=== PATIENT | female | born 1965 | race Caucasian/White ===

== ENCOUNTER 2025-02-23 17:32 | Observation (INO) | payer OTHER, SELFPAY ==
[2025-02-23 17:37] VITALS: BP 92/47; PULSE 75; RESP 18; TEMP 36.6; O2SAT 100; BMI 21.8
[2025-02-23 18:00] VITALS: BP 109/55; PULSE 79; O2SAT 100
[2025-02-23] MEDS: LACTATED RINGERS 1000ML 1,000 ML 999 ML IV (18:18)
[2025-02-23] MEDS: ONDANSETRON 4MG/2ML VIAL 4 MG IV (18:19)
[2025-02-23 18:20] LABS: Basophils % 0.3 % (0.1-2.0); Eosinophils # 0.1 K/mm3 (0.0-0.4); Eosinophils % 0.5 % (0.1-12.0); Hematocrit 36.1 % (37.0-47.0); Hemoglobin 11.7 g/dL (12.2-16.2); Lymphocytes # 4.2 K/mm3 (0.7-4.5); Lymphocytes % 35.4 % (10-50); Mean Corpuscular HGB Conc 32.4 g/dL (31.8-35.4); Mean Corpuscular Hemoglobin 31.9 pg (27.0-31.2); Mean Corpuscular Volume 98.4 fl (81-99); Mean Platelet Volume 11.2 fl (7.4-10.4); Monocytes # 0.9 K/mm3 (0.1-1.0); Monocytes % 7.6 % (1.7-9.3); Neutrophils # 6.7 K/mm3 (1.8-7.8); Neutrophils % 55.9 % (37.0-80.0); Nucleated Red Blood Cells # 0 10^3/uL; Nucleated Red Blood Cells % 0 %; Platelet Count 311 K/mm3 (142-424); Red Blood Count 3.67 M/mm3 (4.20-5.40); Red Cell Distribution Width-SD 47.1 fL; White Blood Count 11.9 K/mm3 (4.8-10.8)
--- NOTE | 2025-02-23 18:20 | ECG_ITS ---
APPROVED REPORT Exam: Resting ECG HR:64 bpm ECG Measurements Heart Rate [address] 145 P -44 QRSd 175 QRS 118 QT 525 T -68 QTc 534 Conclusion ELECTRONIC ATRIAL PACEMAKER ELECTRONIC VENTRICULAR PACEMAKER No STEMI Electronically signed by : ENRIQUE WAGONER, 02/24/2025 23:33:24
[2025-02-23 18:24] LABS: Magnesium 2.1 mg/dl (1.6-2.3); Phosphorous 3.5 mg/dl (2.5-4.5)
[2025-02-23 18:27] LABS: Alanine Aminotransferase 24 U/L (12-78); Blood Urea Nitrogen 32 mg/dl (7-17); Creatinine Clearance Estimated 33 mL/min (50-200); Estimated Glomerular Filt Rate 31 ml/min (>60); GFR (African American) 37 ML/MIN (>60)
[2025-02-23 18:28] LABS: Activated Partial Thrombo Time 24.9 seconds (22.8-30.6); Alkaline Phosphatase 142 U/L (38-126); Aspartate Amino Transferase 47 U/L (14-36); Bilirubin,Total 0.7 mg/dl (0.2-1.3); Calcium 9.1 mg/dl (8.4-10.2); Carbon Dioxide 17 mmol/L (22.0-30.0); INR 1.05 (0.9-1.1); Lipase 87 U/L (23-300); Prothrombin Time 11.7 seconds (10.1-12.5)
[2025-02-23 18:30] VITALS: BP 97/53; PULSE 60; O2SAT 100
[2025-02-23 18:30] LABS: Sodium 140 mmol/L (136-145)
[2025-02-23 18:31] LABS: Albumin Level 3.9 g/dl (3.5-5.0); Albumin/Globulin Ratio 1.3 (1.1-1.8); Anion Gap 17.6 mEq/L (5-15); Chloride 110 mmol/L (98-107); Glucose 107 mg/dl (74-100); Potassium 4.6 mmoL/L (3.5-5.1); Total Protein,Serum 6.9 g/dl (6.3-8.2)
[2025-02-23 18:41] LABS: NT Pro Brain Natriuretic Pep. 25800 pg/mL (0-125); Troponin I 0.43 ng/ml (0.00-0.034)
--- NOTE | 2025-02-23 18:52 | PC.NURSE ---
Obtaining urine sample from pt. She was taken to the bathroom
[2025-02-23 18:58] LABS: Thyroid Stimulating Hormone 4.76 uIU/mL (0.465-4.68)
--- NOTE | 2025-02-23 19:00 | PC.NURSE ---
Urine was collected on pt. it was marked by catheter but it was not. It was a clean catch
[2025-02-23 19:03] LABS: Microscopic, Urine URINE MICROSCOPIC (MICROSCOPIC)
[2025-02-23 19:05] LABS: Appearance,Urine CLEAR (Clear); Blood, Urine Negative (Negative); Color,Urine YELLOW (Yellow); Glucose,Urine (UA) 2+ (Negative); Ketones,Urine Negative (Negative); Leukocyte Esterase,Urine 1+ (Negative); Nitrate,Urine Negative (Negative); PH,Urine 5.5 (5.0-8.5); Protein,Urine 1+ (Negative); Specific Gravity, Urine >= 1.030 (1.005-1.030); Urobilinogen,Urine 0.2 EU/dl (0.2)
--- NOTE | 2025-02-23 19:09 | XR_ITS ---
PROCEDURE INFORMATION: Exam: XR Chest Exam date and time: 02/23/2025 7:37 PM Age: 59 years old Clinical indication: Other: Weakness; Prior surgery; Surgery date: 6+ months; Surgery type: Pacemaker; Additional info: Elevated bnp, general weakness TECHNIQUE: Imaging protocol: Radiologic exam of the chest. Views: 1 view. COMPARISON: No relevant prior studies available. FINDINGS: Tubes, catheters and devices: Unremarkable pacemaker placement. Lungs: Unremarkable. No consolidation. Pleural spaces: Unremarkable. No pleural effusion. No pneumothorax. Heart/Mediastinum: Mild cardiomegaly. Bones/joints: Unremarkable. IMPRESSION: No acute findings.
[2025-02-23 19:13] LABS: Bilirubin,Urine 1+ (Negative)
[2025-02-23 19:21] LABS: Bacteria,Urine 2+ /lpf; Squamous Epithelial Cell,Urine Occasional #/hpf (0-5); WBC,Urine 50-100 #/hpf (0-3)
[2025-02-23 19:22] LABS: Hyaline Casts,Urine Occasional #/lpf (0); Yeast,Urine 2+ /lpf
[2025-02-23 20:16] VITALS: BP 100/57; PULSE 74; RESP 16; TEMP 37; O2SAT 100; BMI 22.5
--- NOTE | 2025-02-23 20:23 | PC.NURSE ---
Report called to Shauna RAMOS Pt transported to floor via wheelchair
[2025-02-23 20:27] LABS: HIV Combo NEGATIVE (Negative)
--- NOTE | 2025-02-23 20:33 | PC.NURSE ---
Patient arrived to floor via wheelchair from ED at 20:29.
[2025-02-23 20:35] LABS: Hepatitis C Ab Qual. W/ RFX NEGATIVE (Negative)
[2025-02-23 20:37] VITALS: PULSE 70
[2025-02-23 20:38] VITALS: BP 96/62; PULSE 60; RESP 14; TEMP 37.1; O2SAT 100
--- NOTE | 2025-02-23 20:39 | ED_ITS ---
Discharge Plan Disposition Patient Disposition: Admitted Clinical Impressions Clinical Impression: CHF (congestive heart failure), UTI (urinary tract infection), Nausea, vomiting and diarrhea Discharge ED Provider: Luann Robison General Adult HPI General Chief complaint: Nausea/Vomiting/Diarrhea Stated complaint: vomiting,kathy,weakness,uti Time Seen by Provider: 02/23/25 17:46 Mode of Arrival: Ambulatory Source of Information: Patient and Relative Description of Symptoms (Recalled from ER Triage Doc. by RN): Pt presents for evaluation of vomiting, diarrhea, feeling fatigued, generalized weakness. Family expresses concerns that she appears pale, and her PCP is requesting labs to be done. Pt recently had a UTI, and was treated with antibiotics is complaining of vaginal itching History of Present Illness HPI narrative: This patient is a 59-year-old female with a history of CHF, hypertension, hyperlipoidemia, diabetes, PAD status post revascularization to right lower extremity, prior CVA presenting to the emergency department for evaluation of concern for multiple complaints. Patient has had 3 weeks of nausea, vomiting, diarrhea and is also had UTI symptoms. She completed oral antibiotics 1 week ago, but the UTI symptoms have persisted and she is felt no better. She also states that she has been feeling very generally weak and is now been having chest pains and shortness of breath. Symptoms are intermittent, nothing seems to make the better or worse. Emesis is nonbloody and nonbilious, diarrhea is nonbloody. Patient also now complains of vaginal itching, concerned she is having a yeast infection. Family stress concerned because they think that she is not taking her medications properly, as they believe that she is taking both sotalol and metoprolol and they are concerned that this could be contributing to her weakness, chest pain, shortness of breath. They state that they do not think she supposed to be on both. They note that she recently moved here from [place], so they are not sure about her prior records. She did have a hospitalization for 5 months with discharge in December after CVA that happened after revascularization of her right lower extremity. Related Data Home Medications ?Medication ?Instructions ?Recorded ?Confirmed atorvastatin 40 mg tablet 40 mg PO HS 02/23/25 02/23/25 clopidogrel 75 mg tablet 75 mg PO DAILY 02/23/25 02/23/25 empagliflozin 10 mg tablet 10 mg PO DAILY 02/23/25 02/23/25 (Jardiance) furosemide 40 mg tablet 40 mg PO DAILY 02/23/25 02/23/25 metoprolol succinate 25 mg 12.5 mg PO DAILY 02/23/25 02/23/25 tablet,extended release 24 hr nitroglycerin 0.4 mg sublingual 0.4 mg sublingual DIRECTED PRN 02/23/25 02/23/25 tablet Chest Pain paroxetine HCl 20 mg tablet 20 mg PO HS PRN Sleep 02/23/25 02/23/25 potassium chloride 20 mEq 20 meq PO DAILY 02/23/25 02/23/25 tablet,extended release sacubitril 24 mg-valsartan 26 mg 1 tab PO BID 02/23/25 02/23/25 tablet (Entresto) sotalol 80 mg tablet 80 mg PO DAILY 02/23/25 02/23/25 spironolactone 25 mg tablet 25 mg PO DAILY 02/23/25 02/23/25 Allergies Allergy/AdvReac Type Severity Reaction Status Date / Time From SUDAFED 12 HOUR Allergy Unknown Uncoded 10/27/17 15:11 From VICODIN Allergy Unknown Uncoded 10/27/17 15:11 MICROBID Allergy Unknown Uncoded 10/27/17 15:11 [facility] Disclaimer: The information contained in this section may have been updated after the patient was seen, as this information can be updated by other users. Social History Smoking Status: Never smoker alcohol intake: never current occupational status: retired Travel in the last 8 weeks: None ROS Obtained: Yes All systems reviewed & no additional complaints except as documented Physical Exam General General appearance: alert and in no apparent distress Head Head exam: atraumatic and normocephalic Eye Eye exam: Present normal appearance, PERRL and EOMI ENT ENT exam: Present normal exam, normal oropharynx, mucous membranes moist and normal external ear exam Neck Neck exam: Present normal inspection, full ROM and trachea midline; Absent tenderness Chest Chest inspection: Present normal inspection and symmetric chest wall rise; Absent tenderness Respiratory Respiratory exam: Present normal lung sounds bilaterally; Absent respiratory distress, wheezes, stridor or accessory muscle use Cardiovascular Cardiovascular exam: Present regular rate and normal rhythm Abdominal Exam Abdominal exam: Present soft; Absent distention, tenderness or guarding Extremities Exam Extremities exam: Present normal inspection, full ROM and normal capillary refill; Absent tenderness or edema Back Exam Back exam: Present normal inspection and full ROM; Absent tenderness Neurological Exam Neurological exam: Present alert, oriented X3, CN II-XII intact and other (Generally weak without focal deficit); Absent motor sensory deficit Psychiatric Psychiatric exam: Present normal affect and normal mood Skin Skin exam: Present warm, dry and pallor Medical Decision Making Medical Records Medical records reviewed: Yes I reviewed the patient's medical records. Screening: Per USPSTF and CDC recommendations, given the prevalence of disease in our region, it is our hospital?s policy to screen for HIV and viral Hepatitis for all patients aged 18 and over and those with ongoing risk factors. Ke[place] Inquiry Pt receiving controlled substance: No Vital Signs: 02/23/25 17:37 02/23/25 18:00 02/23/25 18:30 Temperature 98 F Temperature Source Oral Pulse Rate 79 60 Pulse Rate [Right] 75 Respiratory Rate 18 Blood Pressure 109/55 L 97/53 L Blood Pressure [Right Arm] 92/47 L Blood Pressure Mean [Right Arm] 62 Blood Pressure Source Blood Pressure Source [Right Arm] Automatic Cuff Blood Pressure Position Blood Pressure Position [Right Arm] Sitting 02 Sat by Pulse Oximetry 100 100 100 Oxygen Delivery Method Room Air Room Air Room Air 02/23/25 20:38 Temperature 98.8 F Temperature Source Oral Pulse Rate 60 Pulse Rate [Right] Respiratory Rate 14 Blood Pressure 96/62 L Blood Pressure [Right Arm] Blood Pressure Mean [Right Arm] Blood Pressure Source Automatic Cuff Blood Pressure Source [Right Arm] Blood Pressure Position Sitting Blood Pressure Position [Right Arm] 02 Sat by Pulse Oximetry Oxygen Delivery Method Room Air Lab Data Lab results reviewed: Yes I reviewed the patient's lab results. Lab Results 02/23/25 17:58: WBC 11.9 H, RBC 3.67 L, Hgb 11.7 L, Hct 36.1 L, MCV 98.4, MCH 31.9 H, MCHC 32.4, RDW 13.0, Plt Count 311, MPV 11.2 H, Neut % (Auto) 55.9, Lymph % (Auto) 35.4, [place] % (Auto) 7.6, Eos % (Auto) 0.5, Baso % (Auto) 0.3, Neut # (Auto) 6.7, Lymph # (Auto) 4.2, [place] # (Auto) 0.9, Eos # (Auto) 0.1, Baso # (Auto) 0.0, PT 11.7, INR 1.05, APTT 24.9, Sodium 140, Potassium 4.6, Chloride 110 H, Carbon Dioxide 17 L, Anion Gap 17.6 H, BUN 32 H, Creatinine 1.70 H, Estimated Creat Clear 33, Estimated GFR 31 L, Est GFR ( Amer) 37 L, G lucose 107 H, Calcium 9.1, Phosphorus 3.5, Magnesium 2.1, Total Bilirubin 0.7, A ST 47 H, ALT 24, Alkaline Phosphatase 142 H, Troponin I 0.43 H, NT-Pro-B Natriuret Pep 00690 H, Total Protein 6.9, Albumin 3.9, Globulin 3.0, Albumin/Globulin Ratio 1.3, Lipase 87, TSH 4.76 H, Thyroxine (T4) 10.0, HCV Ab URBANO w/Rflx PCR Qn Negative, HIV Ag/Ab Combo Qual Negative 02/23/25 18:57: Urine Color Yellow, Urine Appearance Clear, Urine pH 5.5, Ur Specific Center >= 1.030, Urine Protein 1+ A, Urine Glucose (UA) 2+, Urine Ketones Negative, Urine Blood Negative, Urine Nitrate Negative, Urine Bilirubin 1+ A, Urine Urobilinogen 0.2, Ur Leukocyte Esterase 1+ A, Urine RBC None, Urine WBC 50-100, Ur Squamous Epith Cells Occasional, Urine Bacteria 2+, Hyaline Casts Occasional, Urine Yeast 2+ 02/23/25 17:58 02/23/25 17:58 Orders (Tests/Meds): ED MEDICATIONS Generic Name Dose Route Start Last Admin Trade Name Freq PRN Reason Stop Dose Admin Acetaminophen 650 mg 02/23/25 20:02 Acetaminophen 325mg Tab PO 03/25/25 20:01 Q4HP PRN Fever or Mild Pain (1-3) Albuterol/Ipratropium 3 ml 02/23/25 20:11 Ipratropium/Albuterol 3 Ml Neb IH 03/25/25 20:10 Q4HP PRN Shortness Of Breath Enoxaparin Sodium 40 mg 02/24/25 09:00 Enoxaparin 40mg/0.4ml Syringe SUBCUT 03/26/25 08:59 DAILY CHRIS Ceftriaxone Sodium 1 gm/ 50 mls @ 100 mls/hr 02/23/25 20:15 Sodium Chloride IV 03/05/25 20:14 Q24H CHRIS Sodium Chloride 1,000 mls @ 50 mls/hr 02/23/25 20:09 Sod Chlor 0.9% 1000ml Bag IV 02/24/25 16:08 .Q20H ONE Insulin Human Lispro 0 unit 02/23/25 21:00 Humalog 100 Units/Ml 10ml Vial (Ssi) SUBCUT 03/25/25 20:59 ACHS CHRIS Protocol Nicotine 21 mg 02/23/25 20:02 Nicotine 21mg/24hr Patch TD 03/25/25 20:01 DAILYP PRN Nicotine Cravings Ondansetron HCl 4 mg 02/23/25 20:02 Ondansetron 4mg/2ml Vial IV 03/25/25 20:01 Q6HP PRN Nausea Pantoprazole Sodium 40 mg 02/23/25 21:00 Pantoprazole 40mg Tablet PO 03/25/25 20:59 HS CHRIS Sodium Chloride 10 ml 02/23/25 20:08 Sodium Chloride 0.9% 10ml Flush Syringe IV 03/25/25 20:07 NEEDED PRN Maintain IV Site Discontinued Medications Generic Name Dose Route Start Last Admin Trade Name Freq PRN Reason Stop Dose Admin Lactated Ringer's 1,000 mls @ 999 mls/hr 02/23/25 18:07 02/23/25 18:18 Lactated Ringer's 1000 Ml Bag IV 02/23/25 19:07 999 mls/hr .Q1H1M ONE Administration Ondansetron HCl 4 mg 02/23/25 18:07 02/23/25 18:19 Ondansetron 4mg/2ml Vial IV 02/23/25 18:08 4 mg ONCE ONE Administration ORDERS Category Date Time Status CXR --portable [XR chest portable] Stat Exams 02/23/25 19:09 Completed BNP [NT Pro Brain Natriuretic Pep.] Stat Lab 02/23/25 17:58 Completed Complete Blood Count Auto Diff Stat Lab 02/23/25 17:58 Completed Comprehensive Metabolic Panel Stat Lab 02/23/25 17:58 Completed Diarrhea 23 Panel, PCR Stat Lab 02/23/25 18:06 Ordered HIV Combo Stat Lab 02/23/25 17:58 Completed Hepatitis C Ab Qual. W/ RFX Stat Lab 02/23/25 17:58 Completed Lipase Stat Lab 02/23/25 17:58 Completed MAG [Magnesium] Stat Lab 02/23/25 17:58 Completed PHOS [Phosphorous] Stat Lab 02/23/25 17:58 Completed PT INR [Prothrombin Time INR] Stat Lab 02/23/25 17:58 Completed PTT [Activated Partial Thrombo Time] Stat Lab 02/23/25 17:58 Completed T4 (Thyroxine) Stat Lab 02/23/25 17:58 Completed TSH [Thyroid Stimulating Hormone] Stat Lab 02/23/25 17:58 Completed Trop I [Troponin I] Stat Lab 02/23/25 17:58 Completed Troponin I Q3H Lab 02/23/25 21:15 Ordered Troponin I Q3H Lab 02/24/25 00:15 Ordered UA [Urinalysis and Microscopic] Stat Lab 02/23/25 18:57 Completed Blood Culture Stat Micro 02/23/25 19:40 Ordered Urine Culture Stat Micro 02/23/25 18:57 Received ECG Data Tracing #1: I reviewed this ECG and interpreted as documented below: Paced rhythm ventricular rate of 64 bpm. No acute STEMI ECG initial impression date: 02/23/25 ECG initial impression time: 18:22 Medical Decision Narrative: In summary, this patient is a 59-year-old presenting to the Emergency Department for evaluation of general weakness, chest pain, shortness of breath, nausea, vomiting, diarrhea, urinary tract infection symptoms, vaginal itching. Differential diagnoses considered include but are not limited to gastroenteritis, colitis, dehydration, CHF, ACS, urinary tract infection, sepsis, vaginitis. Ruling out the most morbid conditions drove assessment. It should be noted patient's history includes extensive cardiovascular history which likely is not at goal therapy. This complicates all aspects of care by increasing patient's risk for morbidity. On exam, the patient is sitting upright in no acute distress. She is alert and at her neurologic baseline. She is generally weak without any focal new deficit. She has soft pressures and looks clinically dry. Workup included broad lab evaluation to evaluate for infectious, metabolic, cardiac derangements. Chest x-ray also obtained. I independently interpreted chest x-ray prior to the radiologist read and noted cardiomegaly without overt pulmonary edema. Please see their read for final interpretation. Labs were obtained that demonstrated mild leukocytosis, urine is concerning for infection. She has mild anemia, no indication for transfusion. Labs demonstrate MARIA ESTHER, elevated BUN and anion gap, elevated troponin, elevated BNP. EKG obtained demonstrates no STEMI, but she is pacer difficult to determine any sort of underlying changes.. On reassessment, patient is resting calmly in no acute distress with reassuring vital signs and cardiac telemetry. Given her signs of cardiovascular history, elevated troponins, multitude of complaints, and UTI, I feel she would benefit from admission for further monitoring. I had an indirect discussion with the hospitalist who admitted the patient in stable condition. Critical Care Critical Care Time Critical Care Time: No
[2025-02-23 21:27] LABS: POC Glucose,Bedside 95 (70-110)
[2025-02-23] MEDS: 0.9 % SODIUM CHLORIDE 1000ML 1,000 ML 50 ML IV (21:40)
[2025-02-23] MEDS: CEFTRIAXONE 1 GM 1 GM in 0.9 % SODIUM CHLORIDE 50 ML IV (21:40)
[2025-02-23] MEDS: PANTOPRAZOLE 40MG TABLET 40 MG PO (21:41)
[2025-02-23] MEDS: FUROSEMIDE 40MG/4ML VIAL 40 MG IV (21:41)
[2025-02-23 21:59] LABS: Troponin I 0.39 ng/ml (0.00-0.034)
--- NOTE | 2025-02-23 22:23 | P.HP_ITS ---
<Statement entered by Tim Macdonald MD - 02/24/25 18:21> Rounded on patient after nurse practitioner. Personally examined and interviewed patient. Agree with exam findings and care plan as documented. History of Present Illness *Admission Date: 02/24/25 *Reason for visit:: Generalized weakness *History of present illness: A 59-year-old female with a history of congestive heart failure, hypertension, hyperlipidemia, diabetes, peripheral artery disease (status post right lower extremity revascularization), and prior cerebrovascular accident presents to the emergency department with 3 weeks of nausea, vomiting, diarrhea, urinary tract infection symptoms, vaginal itching, general weakness, intermittent chest pain, and shortness of breath. She completed oral antibiotics 1 week ago for a urinary tract infection, but symptoms persisted. She reports nonbloody, nonbilious emesis, nonbloody diarrhea, and suspected yeast infection with vaginal discharge and itching. Family is concerned about medication mismanagement, noting she takes both sotalol 80 mg daily and metoprolol 12.5 mg daily, potentially contributing to weakness, chest pain, and shortness of breath. Home medications include atorvastatin 40 mg nightly, clopidogrel 75 mg daily, empagliflozin 10 mg daily, furosemide 40 mg as needed, nitroglycerin 0.4 mg as needed, paroxetine 20 mg nightly as needed, potassium chloride 20 mEq daily, sacubitril/valsartan one tablet twice daily (restarted 1 week ago), and spironolactone 25 mg daily. She recently moved from [place], lacks a primary care physician, but has a felt cementer appointment planned. She was hospitalized for 5 months until December 2024 post-revascularization and stroke, with moderate right lower extremity weakness requiring intermittent cane use. The history was obtained through interactive discussion with the patient and family, deemed reliable, with no prior records available due to recent relocation. They do state that they were instructed to take her furosemide as needed when they see signs of leg swelling for which they have not seen. On examination, the patient is sitting upright, in no acute distress, alert, at her neurologic baseline, with general weakness but no new focal deficits. She has soft blood pressures, appears clinically dry, and ambulates with a cane. Vital signs are reassuring on cardiac telemetry. Diagnostic workup includes labs, urinalysis, EKG, and chest X-ray. Labs show WBC 11.9, hemoglobin 11.7, platelets 311, sodium 140, potassium 4.6, creatinine 1.70, GFR 31, glucose 107, troponin 0.43 with repeat 0.39, NT-proBNP 33715, BUN 32, anion gap 17.6, AST 47, alkaline phosphatase 142, TSH 4.76, and T4 10.0. Urinalysis shows 50?100 WBCs, 2+ bacteria, 2+ yeast, 1+ protein, 2+ glucose, and 1+ leukocyte esterase. EKG shows paced rhythm at 64 bpm, no STEMI. Chest X-ray shows cardiomegaly without pulmonary edema or peripheral fluid overload signs; radiology read confirms no acute findings. Treatments implemented are not specified but implied to include IV fluids, ceftriaxone, and fluconazole based on prior management. On reassessment, the patient is calm, with stable vitals on telemetry. Hospital medicine admitted her in stable condition for monitoring of cardiovascular issues, troponin elevation, and urinary tract infection. [facility] Disclaimer: The information contained in this section may have been updated after the patient was seen, as this information can be updated by other users. Medical History (Updated 02/24/25 @ 12:26 by RANDI Donohue) CAD (coronary artery disease) CVA (cerebral vascular accident) Social History Smoking Status: Never smoker alcohol intake: never current occupational status: retired Travel in the last 8 weeks: None Other Medical History Have you received the Flu Vaccine for this season: No Have you received the Pneumonia Vaccine: No Review of Systems Review of Systems Review of systems (narrative): 13 point review of systems negative except as listed in HPI Meds Home Medications and Allergies Home Medications ?Medication ?Instructions ?Recorded ?Confirmed ?Type atorvastatin 40 mg tablet 40 mg PO HS 02/23/25 02/23/25 History clopidogrel 75 mg tablet 75 mg PO DAILY 02/23/25 02/23/25 History empagliflozin 10 mg tablet 10 mg PO DAILY 02/23/25 02/23/25 History (Jardiance) furosemide 40 mg tablet 40 mg PO DAILY 02/23/25 02/23/25 History metoprolol succinate 25 mg 12.5 mg PO DAILY 02/23/25 02/23/25 History tablet,extended release 24 hr nitroglycerin 0.4 mg sublingual 0.4 mg sublingual DIRECTED PRN 02/23/25 02/23/25 History tablet Chest Pain paroxetine HCl 20 mg tablet 20 mg PO HS PRN Sleep 02/23/25 02/23/25 History potassium chloride 20 mEq 20 meq PO DAILY 02/23/25 02/23/25 History tablet,extended release sacubitril 24 mg-valsartan 26 mg 1 tab PO BID 02/23/25 02/23/25 History tablet (Entresto) sotalol 80 mg tablet 80 mg PO DAILY 02/23/25 02/23/25 History spironolactone 25 mg tablet 25 mg PO DAILY 02/23/25 02/23/25 History New Prescriptions to Start Prescriptions: Allergies Allergy/AdvReac Type Severity Reaction Status Date / Time From SUDAFED 12 HOUR Allergy Unknown Uncoded 10/27/17 15:11 From VICODIN Allergy Unknown Uncoded 10/27/17 15:11 MICROBID Allergy Unknown Uncoded 10/27/17 15:11 Exam Data for Last 24 hours Vital signs and Labs for Last 24 Hours: Temp Pulse Resp BP Pulse Ox O2 Del Method 98.8 F 60 14 96/62 L 100 Room Air 02/23/25 20:38 02/23/25 20:38 02/23/25 20:38 02/23/25 20:38 02/23/25 20:16 02/23/25 21:00 Laboratory Results - last 24 hr 02/23/25 17:58: WBC 11.9 H, RBC 3.67 L, Hgb 11.7 L, Hct 36.1 L, MCV 98.4, MCH 31.9 H, MCHC 32.4, RDW 13.0, Plt Count 311, MPV 11.2 H, Neut % (Auto) 55.9, Lymph % (Auto) 35.4, [place] % (Auto) 7.6, Eos % (Auto) 0.5, Baso % (Auto) 0.3, Neut # (Auto) 6.7, Lymph # (Auto) 4.2, [place] # (Auto) 0.9, Eos # (Auto) 0.1, Baso # (Auto) 0.0, PT 11.7, INR 1.05, APTT 24.9, Sodium 140, Potassium 4.6, Chloride 110 H, Carbon Dioxide 17 L, Anion Gap 17.6 H, BUN 32 H, Creatinine 1.70 H, Estimated Creat Clear 33, Estimated GFR 31 L, Est GFR ( Amer) 37 L, Glucose 107 H, Calcium 9.1, Phosphorus 3.5, Magnesium 2.1, Total Bilirubin 0.7, AST 47 H, ALT 24, Alkaline Phosphatase 142 H, Troponin I 0.43 H, NT-Pro-B Natriuret Pep 86520 H, Total Protein 6.9, Albumin 3.9, Globulin 3.0, Albumin/Globulin Ratio 1.3, Lipase 87, TSH 4.76 H, Thyroxine (T4) 10.0, HCV Ab URBANO w/Rflx PCR Qn Negative, HIV Ag/Ab Combo Qual Negative 02/23/25 18:57: Urine Color Yellow, Urine Appearance Clear, Urine pH 5.5, Ur Specific [place] >= 1.030, Urine Protein 1+ A, Urine Glucose (UA) 2+, Urine Ketones Negative, Urine Blood Negative, Urine Nitrate Negative, Urine Bilirubin 1+ A, Urine Urobilinogen 0.2, Ur Leukocyte Esterase 1+ A, Urine RBC None, Urine WBC 50-100, Ur Squamous Epith Cells Occasional, Urine Bacteria 2+, Hyaline Casts Occasional, Urine Yeast 2+ 02/23/25 21:18: POC Glucose 95 02/23/25 21:19: Troponin I 0.39 H I & O for Last 24 hours: Intake & Output 02/20/25 02/21/25 02/22/25 02/23/25 23:59 23:59 23:59 23:59 Weight 59.534 kg Constitutional Constitutional: no acute distress *Routine HEENT Exam Head: Present normocephalic Eye: Present EOMI and PERRL ENT: Present mucous membranes moist *Routine Neck Exam Neck: Present supple; Absent lymphadenopathy *Routine Respiratory Exam Respiratory: Present CTA bilaterally *Routine Cardiovascular Exam Cardiovascular: Present RRR *Routine Abdominal Exam Abdominal: Present soft and normoactive bowel sounds; Absent tenderness *Routine Rectal Exam Rectal:: deferred *Routine Genitalia Exam Genitalia:: deferred *Routine Extremities Exam Extremities: Absent cyanosis, clubbing or edema *Routine Skin Exam Skin: Present warm; Absent rash *Routine Neurological Exam Neurological: Present alert and oriented X3 Assessment and Plan *Assessment and plan (1) Sepsis: Status: Acute Category: Medical Code(s): A41.9 - Sepsis, unspecified organism (2) UTI (urinary tract infection): Status: Acute Category: Medical Code(s): N39.0 - Urinary tract infection, site not specified (3) Nausea, vomiting and diarrhea: Status: Acute Category: Medical Code(s): R11.2 - Nausea with vomiting, unspecified; R19.7 - Diarrhea, unspecified (4) CHF (congestive heart failure): Status: Acute Category: Medical Code(s): I50.9 - Heart failure, unspecified (5) Generalized weakness: Status: Acute Category: Medical Code(s): R53.1 - Weakness (6) NSTEMI (non-ST elevated myocardial infarction): Status: Acute Category: Medical Code(s): I21.4 - Non-ST elevation (NSTEMI) myocardial infarction (7) Peripheral artery disease: Status: Acute Category: Medical Code(s): I73.9 - Peripheral vascular disease, unspecified (8) HFrEF (heart failure with reduced ejection fraction): Status: Acute Category: Medical Code(s): I50.20 - Unspecified systolic (congestive) heart failure Plan 59-year-old female with history of stroke with residual deficits. Presented with worsening weakness over the past 3 weeks including nausea, vomiting, diarrhea and concern for UTI with vaginal itching. Family recently help take over her care and are worried about her regimen unclear what she is supposed to be taking. Has not established with a primary care since arriving to [place] in December. Found to have UTI elevated on and concern for CHF and sepsis. Case discussed with ER physician, request admission for treatment of her heart failure, MARIA ESTHER versus CKD, sepsis and UTI. Medicine agreed to admit for further care. Necessitating inpatient treatment. Cardiology to evaluate in the morning. Problems addressed as follows * Urinary Tract Infection: Persistent urinary tract infection symptoms despite recent antibiotics, with urinalysis showing 50?100 WBCs, 2+ bacteria, and 1+ leukocyte esterase, in a patient with suspected diabetes. * Initiate IV ceftriaxone 1 g daily; obtain urine culture to guide antibiotic therapy. * Monitor for dysuria, frequency, or worsening pain every 4 hours; recheck urinalysis in 48 hours. * Encourage hydration to support infection clearance. 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 * Start furosemide 40 mg IV daily for fluid overload, hold if systolic blood pressure drops below 90 or hypovolemia signs appear. * Continue sacubitril/valsartan one tablet twice daily and spironolactone 25 mg daily as home regimen, pending cardiology review. * Hold sotalol and metoprolol until cardiology clarifies to avoid bradycardia or hypotension; monitor heart rate every 2 hours. * Monitor daily weights, input/output, and edema every 8 hours; restrict sodium to 2 grams daily. * Order echocardiogram to assess cardiac function; compare to prior records. * Consult cardiology to optimize congestive heart failure management and review beta-delaney duplication. * Recheck NT-proBNP in 24 hours to assess diuresis response. * Non-ST Elevation Myocardial Infarction (Suspected): Intermittent chest pain, troponin 0.43, paced rhythm on EKG (64 bpm), no STEMI, in a patient with coronary artery disease and congestive heart failure. * Continue clopidogrel 75 mg daily and nitroglycerin 0.4 mg sublingual as needed (home regimen); monitor for bleeding (hemoglobin 11.7). * Monitor troponin every 8 hours for 24 hours; consult cardiology if troponin rises above 0.5. * Monitor for chest pain or ischemic symptoms every 4 hours; repeat EKG if symptoms worsen. * Continue cardiology consultation for NSTEMI evaluation. * Vaginal Yeast Infection (Suspected): Vaginal itching and discharge, urinalysis with 2+ yeast, in a patient with diabetes and recent antibiotics. * Administer fluconazole 200 mg oral x 2 days for suspected yeast infection. * Monitor for worsening itching or discharge every 8 hours; consult gynecology if symptoms persist after 48 hours. * Coordinate with primary care for outpatient gynecologic follow-up. * Acute Kidney Injury: Creatinine 1.70, GFR 31, BUN 32, likely prerenal from dehydration (nausea, vomiting, diarrhea), in a patient with chronic kidney disease and diabetes. * Continue IV fluids at 50 mL/hour to support renal perfusion; monitor urine output every 4 hours, targeting above 0.5 mL/kg/hour. * Recheck creatinine and BUN in 24 hours; monitor closely if creatinine rises above 2.0 or GFR falls below 25. * Continue potassium chloride 20 mEq daily (home dose) to maintain potassium (4.6); recheck in 24 hours. * Avoid nephrotoxic agents; adjust medications for renal function. * Mild Anemia: Hemoglobin 11.7, likely chronic or related to diabetes/congestive heart failure, no transfusion indication. * Recheck CBC in 24 hours to monitor anemia; monitor closely if hemoglobin falls below 10.0 or symptoms worsen. * Monitor for bleeding signs every 4 hours. * Hyperglycemia : Glucose 107, likely uncontrolled diabetes exacerbated by sepsis, on empagliflozin 10 mg daily, in a patient with prediabetes history. * Continue empagliflozin 10 mg daily (home dose) which is likely for cardiac protection; will order sliding scale with ACHS Accu-Cheks * Order hemoglobin A1c to assess for diabetes l; monitor closely if A1c exceeds 7% or glucose exceeds 250. * Electrolyte Imbalances: Low CO2 17, elevated anion gap 17.6, likely from diarrhea and acute kidney injury, in a patient with sepsis. * Monitor electrolytes every 6 hours until CO2 above 20 and anion gap below 14; administer sodium bicarbonate 650 mg oral twice daily if CO2 persists below 18. * Recheck CMP in 24 hours to trend. 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 * Continue atorvastatin 40 mg nightly, clopidogrel 75 mg daily, empagliflozin 10 mg daily, furosemide 40 mg IV daily, nitroglycerin 0.4 mg sublingual as needed, paroxetine 20 mg nightly as needed, potassium chloride 20 mEq daily, sacubitril/valsartan one tablet twice daily, and spironolactone 25 mg daily. * Hold sotalol and metoprolol pending cardiology review to clarify duplication and prevent adverse effects. * Consult cardiology to reconcile beta-delaney regimen and optimize cardiovascular therapy. Additional Orders: * Admit to medical-surgical floor for sepsis, congestive heart failure, and NSTEMI monitoring. * Maintain continuous telemetry; check vitals every 2 hours, including glucose every 4 hours. * Administer acetaminophen 650 mg oral every 6 hours as needed for discomfort. * Educate patient and family on congestive heart failure, diabetes, and medication adherence. * Arrange outpatient follow-up with cardiology, gynecology, primary care. * Expedite urine/blood cultures, troponin trend, and cardiology consult.
[2025-02-24] VITALS: BP 102/51; PULSE 60; PULSE 65; RESP 18; TEMP 36.9; O2SAT 98
[2025-02-24 01:11] LABS: Troponin I 0.39 ng/ml (0.00-0.034)
[2025-02-24 04:00] VITALS: BP 101/60; PULSE 60; PULSE 66; RESP 15; TEMP 36.6; O2SAT 98; BMI 22.4
--- NOTE | 2025-02-24 04:53 | PC.NURSE ---
New Admit. Treated with IV ABX, minimal fluids and diuretics, per JAN. V/s, ox4, at bedside. Pt has pacemaker in place. Plan of care ongoing.
[2025-02-24 06:32] LABS: POC Glucose,Bedside 85 (70-110)
[2025-02-24 06:44] LABS: Basophils % 0.3 % (0.1-2.0); Eosinophils # 0.1 K/mm3 (0.0-0.4); Eosinophils % 0.9 % (0.1-12.0); Hematocrit 34.1 % (37.0-47.0); Hemoglobin 10.8 g/dL (12.2-16.2); Lymphocytes % 45.1 % (10-50); Mean Corpuscular HGB Conc 31.7 g/dL (31.8-35.4); Mean Corpuscular Hemoglobin 31.1 pg (27.0-31.2); Mean Corpuscular Volume 98.3 fl (81-99); Mean Platelet Volume 11.2 fl (7.4-10.4); Monocytes # 0.6 K/mm3 (0.1-1.0); Monocytes % 6.5 % (1.7-9.3); Neutrophils # 4.1 K/mm3 (1.8-7.8); Nucleated Red Blood Cells # 0 10^3/uL; Nucleated Red Blood Cells % 0 %; Platelet Count 254 K/mm3 (142-424); Red Blood Count 3.47 M/mm3 (4.20-5.40); Red Cell Distribution Width 13.1 % (11.5-17.5); Red Cell Distribution Width-SD 46.5 fL; White Blood Count 8.8 K/mm3 (4.8-10.8)
[2025-02-24 06:51] LABS: Chloride 111 mmol/L (98-107); Potassium 4.3 mmoL/L (3.5-5.1); Sodium 141 mmol/L (136-145)
[2025-02-24 06:54] LABS: Anion Gap 15.3 mEq/L (5-15); Blood Urea Nitrogen 32 mg/dl (7-17); Carbon Dioxide 19 mmol/L (22.0-30.0); Creatinine Clearance Estimated 34 mL/min (50-200); Estimated Glomerular Filt Rate 31 ml/min (>60); GFR (African American) 37 ML/MIN (>60)
[2025-02-24 06:55] LABS: Calcium 8.4 mg/dl (8.4-10.2); Glucose 86 mg/dl (74-100); Magnesium 1.9 mg/dl (1.6-2.3); Phosphorous 3.5 mg/dl (2.5-4.5)
--- NOTE | 2025-02-24 07:00 | CA_ITS ---
APPROVED REPORT EXAM: Comprehensive 2D, Doppler, and color-flow Echocardiogram with contrast Coper Hand: Conchita Gallegos CRT Ht: 5 ft 4 in Wt: 130lbs BSA: 1.63 BP: 96/62 mmHg Indications: Chest Pain, Congestive Heart Failure, Shortness of Breath, Diabetes, Hyperlipidemia, Hypertension/HDD, Pacer, PAD, stents, old CVA, CABG, old FL Echo Enhancing Agent Indication: Endocardial border delineation Agent(s) / Amount(s) Used: Definity 2 cc Comments: Definity given 2D Dimensions LA Volume 68.50 mL LA Volume Index 41.00 mL/m2 (M/F) 16-34 M-Mode Dimensions RVDd 1.93 cm (0.9-2.6) LA Diam 4.50 cm (1.9-4.0) LVDd 6.91 cm (3.5-5.7) LVDs 6.23 cm (3.5-5.7) IVSd 1.43 cm (0.6-1.1) PWd 1.11 cm (0.6-1.1) EF (Teich) 21.00% FS 9.80% EDV (Teich) 248.10 mL TAPSE 1.84 (<1.7) ESV (Teich) 196.10 mL LV Diastology E Decel Time 160 (160-240 msec) E/A Ratio 3.17 MED A' 2.60 cm/s LAT A' 3.10 cm/s Aortic Valve YANE Index 1.68 cm2/m2 AoV Peak Hank. 152.0 (50-130 cm/s) AI PHT 481.00 ms AO Peak GR. 9.30 mmHg AO Mean GR. 4.90 (<5 mmHg) AO VTI 21.5 (18-25 cm) YANE (VTI) 2.81 (2.5-4.5 cm2) Mitral Valve MV A Velocity 32.0 (40-130 cm/s) E/A Ratio 3.17 Pulmonary Valve PV Peak Velocity 223.0 (50-150 cm/s) Tricuspid Valve TR P. Velocity 326.00 cm/s RAP Estimate 10.00 mmHg RVSP 52.60 mmHg Left Ventricle Left ventricle is severely dilated. The left ventricular systolic function is severely reduced. There is normal left ventricular wall thickness. There is severe global hypokinesis present. Grade 3 diastolic dysfunction is present. No left ventricle thrombus noted on this study. LVEF is 15%. Right Ventricle Right ventricle is mildly dilated. The right ventricular systolic function is normal. There is a device lead in the right ventricle. Atria The left atrium is severely dilated. Right atrium is moderately dilated. There is no Doppler evidence of interatrial shunt. Aortic Valve The aortic valve is mildly thickened. Moderate aortic regurgitation. There is no aortic valvular stenosis. Mitral Valve The posterior mitral valve leaflet is tethered and restricted in motion. No evidence of mitral valve stenosis. Moderate mitral regurgitation. The MR jet is eccentric and posteriorly directed. Tricuspid Valve Tricuspid valve is grossly normal in structure and function. Mild to moderate tricuspid regurgitation. RVSP is 40-45 mmHg. Pulmonic Valve The pulmonary valve is normal in structure. Mild to moderate pulmonic regurgitation. Great Vessels The aortic root is normal in size. IVC is normal in size and collapses >50% with inspiration. Pericardium There is no pericardial effusion. Other Information Study Quality: Fair Conclusion Severe LV dilation with severe reduction in LV systolic function (LVEF 15%). Grade 3 diastolic dysfunction is present. Mild RV dilation with normal RV function. Biatrial dilation. Moderate AI. Tethered posterior MV leaflet. Moderate MR. Mild to moderate TR, mild to moderate PI. Electronically signed by : Esther Smith MD 02/24/2025 20:58:24
[2025-02-24 07:22] LABS: Hemoglobin A1C 5.2 % (4.0-6.0)
[2025-02-24] MEDS: DEFINITY US ECHO CONTRAST 2ML INJ 2 MG IV (07:23)
[2025-02-24 08:00] VITALS: BP 99/47; PULSE 60; PULSE 61; RESP 17; TEMP 36.9; O2SAT 95
[2025-02-24] MEDS: ENOXAPARIN 40MG/0.4ML SYRINGE 40 MG SUBCUT (09:26)
[2025-02-24] MEDS: SACUBITRIL/VALSARTAN 24-26MG TABLET 1 EACH PO ×2 (09:27→20:12)
[2025-02-24] MEDS: EMPAGLIFLOZIN 10MG TABLET 10 MG PO (09:27)
[2025-02-24] MEDS: FUROSEMIDE 40 MG TABLET PO (09:27)
[2025-02-24] MEDS: CLOPIDOGREL 75MG TAB 75 MG PO (09:27)
[2025-02-24] MEDS: FLUCONAZOLE 200MG TABLET 200 MG PO (09:27)
[2025-02-24 12:00] VITALS: PULSE 60
--- NOTE | 2025-02-24 12:21 | EXP.CARD.CON ---
History of Present Illness History of Present Illness Consult date: 02/24/25 Requesting physician: Tim Macdonald Chief complaint: weakness, NVD History of present illness: 59-year-old white female with extensive cardiovascular history who was just moved here recently from [place] and has yet to establish care. Details of her history are unclear but she states she has multivessel CAD status 3 prior stents and at least 1 prior AR - last >1 year ago. She had ICD placed approximately 3 years ago for heart failure but does not know etiology of HF or or most recent EF. She has history of PAD status post right lower extremity PCI several years ago. 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 States last year she was in a swing bed long-term facility for 5 months following AR and CVA-she was discharged from this facility in [place] in December. Patient presented to the emergency room yesterday complaining 3 weeks of nausea vomiting diarrhea UTI symptoms vaginal itching and shortness of breath. ER evaluation revealed proBNP 25,000, chest x-ray was clear, no peripheral edema on exam. Troponin elevated at 0.43 then trending down to 0.39 x 2. EKG shows AV pacing. She meets criteria for sepsis due to UTI so she was admitted for further workup and management. [facility] Disclaimer: The information contained in this section may have been updated after the patient was seen, as this information can be updated by other users. Medical History (Updated 02/24/25 @ 12:26 by RANDI Donohue) CAD (coronary artery disease) CVA (cerebral vascular accident) Social History Smoking Status: Never smoker alcohol intake: never current occupational status: retired Travel in the last 8 weeks: None Have you lived/traveled outside US in past 30 days?: No Contact w/someone who lives/traveled outside US past 30 days?: No Exposure to someone with infectious disease in past 14 days?: No Do you have a fever (greater than 100.4 F or 38 C)?: No Have you tested positive for COVID-19: No Exposed to someone with COVID-19 in past 14 days?: No Do you have a sore throat?: No Do you have a cough?: No Do you have any weakness?: No Do you have any diarrhea?: No Are you experiencing any unusual bleeding?: No Do you have any muscle aches/pain?: No Do you have any abdominal pain?: No Are you experiencing loss of taste or smell?: No Review of Systems Constitutional Constitutional: Reports fatigue and Reports weakness Eyes Eyes: Denies loss of vision ENT Ears, Nose, Mouth, and Throat: Denies hearing loss and Denies vertigo *Cardiovascular Cardiovascular: Denies chest pain, Reports dyspnea and Denies syncope *Respiratory Respiratory: Denies cough and Reports dyspnea *Gastrointestinal Gastrointestinal: Denies change in stool character, Reports nausea and Reports vomiting *Genitourinary Genitourinary: Reports as per HPI *Musculoskeletal Musculoskeletal: Denies muscle weakness Integumentary/Breasts Skin/Breast: Denies changing lesions *Neurologic Neurologic: Reports as per HPI, Denies loss of vision, Denies syncope, Denies vertigo and Reports weakness Endocrine Endocrine: Reports fatigue Exam Data for Last 24 hours Vital signs and Labs for Last 24 Hours: Temp Pulse Resp BP Pulse Ox O2 Del Method 98.4 F 61 17 99/47 L 95 Room Air 02/24/25 08:00 02/24/25 08:00 02/24/25 08:00 02/24/25 08:00 02/24/25 08:00 02/24/25 11:00 Laboratory Results - last 24 hr 02/23/25 17:58: WBC 11.9 H, RBC 3.67 L, Hgb 11.7 L, Hct 36.1 L, MCV 98.4, MCH 31.9 H, MCHC 32.4, RDW 13.0, Plt Count 311, MPV 11.2 H, Neut % (Auto) 55.9, Lymph % (Auto) 35.4, [place] % (Auto) 7.6, Eos % (Auto) 0.5, Baso % (Auto) 0.3, Neut # (Auto) 6.7, Lymph # (Auto) 4.2, [place] # (Auto) 0.9, Eos # (Auto) 0.1, Baso # (Auto) 0.0, PT 11.7, INR 1.05, APTT 24.9, Sodium 140, Potassium 4.6, Chloride 110 H, Carbon Dioxide 17 L, Anion Gap 17.6 H, BUN 32 H, Creatinine 1.70 H, Estimated Creat Clear 33, Estimated GFR 31 L, Est GFR ( Amer) 37 L, Glucose 107 H, Calcium 9.1, Phosphorus 3.5, Magnesium 2.1, Total Bilirubin 0.7, AST 47 H, ALT 24, Alkaline Phosphatase 142 H, Troponin I 0.43 H, NT-Pro-B Natriuret Pep 64064 H, Total Protein 6.9, Albumin 3.9, Globulin 3.0, Albumin/Globulin Ratio 1.3, Lipase 87, TSH 4.76 H, Thyroxine (T4) 10.0, HCV Ab URBANO w/Rflx PCR Qn Negative, HIV Ag/Ab Combo Qual Negative 02/23/25 18:57: Urine Color Yellow, Urine Appearance Clear, Urine pH 5.5, Ur Specific [place] >= 1.030, Urine Protein 1+ A, Urine Glucose (UA) 2+, Urine Ketones Negative, Urine Blood Negative, Urine Nitrate Negative, Urine Bilirubin 1+ A, Urine Urobilinogen 0.2, Ur Leukocyte Esterase 1+ A, Urine RBC None, Urine WBC 50-100, Ur Squamous Epith Cells Occasional, Urine Bacteria 2+, Hyaline Casts Occasional, Urine Yeast 2+ 02/23/25 21:18: POC Glucose 95 02/23/25 21:19: Troponin I 0.39 H 02/24/25 00:35: Troponin I 0.39 H 02/24/25 05:42: WBC 8.8 D, RBC 3.47 L, Hgb 10.8 L, Hct 34.1 L, MCV 98.3, MCH 31.1, MCHC 31.7 L, RDW 13.1, Plt Count 254, MPV 11.2 H, Neut % (Auto) 47.0, Lymph % (Auto) 45.1, [place] % (Auto) 6.5, Eos % (Auto) 0.9, Baso % (Auto) 0.3, Neut # (Auto) 4.1, Lymph # (Auto) 4.0, [place] # (Auto) 0.6, Eos # (Auto) 0.1, Baso # (Auto) 0.0, Sodium 141, Potassium 4.3, Chloride 111 H, Carbon Dioxide 19 L, Anion Gap 15.3 H, BUN 32 H, Creatinine 1.70 H, Estimated Creat Clear 34, Estimated GFR 31 L, Est GFR ( Amer) 37 L, Glucose 86, Hemoglobin A1c 5.2, Calcium 8.4, Phosphorus 3.5, Magnesium 1.9 02/24/25 06:24: POC Glucose 85 I & O for Last 24 hours: Intake & Output 02/21/25 02/22/25 02/23/25 02/24/25 23:59 23:59 23:59 23:59 Intake Total 620 / 620 Output Total 850 / 850 Balance -230 / -230 Weight 131 lb 4 oz 131 lb 4 oz Constitutional Constitutional: no acute distress and cooperative *Routine HEENT Exam Eye: Present PERRL *Routine Respiratory Exam Respiratory: Present CTA bilaterally; Absent accessory muscle use, wheezes or crackles *Routine Cardiovascular Exam Cardiovascular: Present RRR, Normal S1 and Normal S2; Absent murmur, gallop or rubs *Routine Abdominal Exam Abdominal: Present soft; Absent tenderness *Routine Extremities Exam Extremities: Present pulses intact; Absent cyanosis or edema *Routine Skin Exam Skin: Present intact; Absent erythema or wounds *Routine Neurological Exam Neurological: Present alert and oriented X3 Routine Psychiatric Exam Psychiatric: Present cooperative Meds Home Medications and Allergies Home Medications ?Medication ?Instructions ?Recorded ?Confirmed ?Type atorvastatin 40 mg tablet 40 mg PO HS 02/23/25 02/23/25 History clopidogrel 75 mg tablet 75 mg PO DAILY 02/23/25 02/23/25 History empagliflozin 10 mg tablet 10 mg PO DAILY 02/23/25 02/23/25 History (Jardiance) furosemide 40 mg tablet 40 mg PO DAILY 02/23/25 02/23/25 History metoprolol succinate 25 mg 12.5 mg PO DAILY 02/23/25 02/23/25 History tablet,extended release 24 hr nitroglycerin 0.4 mg sublingual 0.4 mg sublingual DIRECTED PRN 02/23/25 02/23/25 History tablet Chest Pain paroxetine HCl 20 mg tablet 20 mg PO HS PRN Sleep 02/23/25 02/23/25 History potassium chloride 20 mEq 20 meq PO DAILY 02/23/25 02/23/25 History tablet,extended release sacubitril 24 mg-valsartan 26 mg 1 tab PO BID 02/23/25 02/23/25 History tablet (Entresto) sotalol 80 mg tablet 80 mg PO DAILY 02/23/25 02/23/25 History spironolactone 25 mg tablet 25 mg PO DAILY 02/23/25 02/23/25 History New Prescriptions to Start Prescriptions: Allergies Allergy/AdvReac Type Severity Reaction Status Date / Time From SUDAFED 12 HOUR Allergy Unknown Uncoded 10/27/17 15:11 From VICODIN Allergy Unknown Uncoded 10/27/17 15:11 MICROBID Allergy Unknown Uncoded 10/27/17 15:11 Assessment and Plan *Assessment and plan (1) HFrEF (heart failure with reduced ejection fraction): Status: Acute Category: Medical Code(s): I50.20 - Unspecified systolic (congestive) heart failure (2) CAD (coronary artery disease): Status: Acute Category: Medical Code(s): I25.10 - Atherosclerotic heart disease of [place] coronary artery without angina pectoris (3) Nausea, vomiting and diarrhea: Status: Acute Category: Medical Code(s): R11.2 - Nausea with vomiting, unspecified; R19.7 - Diarrhea, unspecified (4) UTI (urinary tract infection): Status: Acute Category: Medical Code(s): N39.0 - Urinary tract infection, site not specified (5) Sepsis: Status: Acute Category: Medical Code(s): A41.9 - Sepsis, unspecified organism (6) Peripheral artery disease: Status: Acute Category: Medical Code(s): I73.9 - Peripheral vascular disease, unspecified Plan CAD with elevated trop - pt is vasculopath with 3 prior stents - denies anginal symptoms here - Trop 0.43, 0.39, 0.39 - EKG - A/V pacing Plan: - check 2D ECHO - Cont Plavix, Lovenox, Statin - Add ASA - BB on hold due to bradycardia HFrEF s/p ICD - possibly [employer] device, will try to gather more info - EKG here shows AV packing - ProBNP 25k but CXR clear and pt euvolemic on exam Plan: - monitor vol status, I/O - DC Jardiance in setting of UTI/sepsis - Cont Entresto if BP will tolerate. Cont Lasix. - check 2D ECHO PAD - s/p RLE PCI and CVA - denies symptoms Plan: - DAPT, Statin Sepsis/UTI - BP 90-100, HR 60s, O2 95% on room air Plan: - antibiotics per primary service - DC SLGT-2 *No immediate plans for CV procedural intervention. Likely will just gather records, medically manage, and follow up outpatient. Further plans pending ECHO results and her response to treatment.
[2025-02-24 12:39] VITALS: BMI 22.4
[2025-02-24] MEDS: ASPIRIN EC 81MG TABLET 81 MG PO (13:04)
--- NOTE | 2025-02-24 14:27 | HMH.PTEV ---
Physical Therapy Evaluation Rehab PT IP Evaluation Start: 02/24/25 09:38 Freq: ONCE Status: Active Protocol: Document 02/24/25 13:50 EDUARDA (Rec: 02/24/25 14:27 [place] [id number]) Subjective/History History History A 59-year-old female with a history of congestive heart failure, hypertension, hyperlipidemia, diabetes, peripheral artery disease ( status post right lower extremity revascularization), and prior cerebrovascular accident presents to the emergency department with 3 weeks of nausea, vomiting, diarrhea, urinary tract infection symptoms, vaginal itching, general weakness, intermittent chest pain, and shortness of breath. Patient has a hx of a stroke which caused right sided weakness and aphasia. Patient currently lives with her ex- and uses a cane while ambulating. Subjective Subjective Patient presents resting supine in bed, and is alert and oriented. Pt's ex- is present in the room. She is willing to ambulate with PT this pm with use of a cane. Pt returned sitting at EOB with call light within reach. [facility] How much help from another person do you currently need... Turning from your back to your side None while in a flat bed without using bedrails? Moving from lying on back to sitting on None the side of a flat bed without using bedrails? Moving to and from a bed to a chair ( None including a wheelchair)? Standing up from a chair using your arms None ? (e.g., wheelchair, bedside chair) Walking in hospital room? None Climbing 3-5 steps with a railing? None Mobility Score 24 Mobility Level [facility] Mobility Calculator Mobility 8 Walk 250 feet or more Rehab PT IP Eval Objective Appearance Patient Behavior Appropriate,Cooperative Patient Orientation Person,Place,Time Difficulty following instructions none Speech Pattern Clear,Appropriate Ambulation Patient Able to Ambulate Yes Ambulation Observation IP General Gait Pattern Observation Narrow Based Gait Ambulation Distance (feet) 100 Ambulation Assistive Device Straight Cane Ambulation Ability Supervision/Stand by Balance Ability to Arise Able, uses arms to help Sitting Balance Steady, safe Standing Balance Steady, wide stance Dynamic Sitting Balance Ability Normal Dynamic Standing Balance Ability Normal Transfers Bed Transfer Ability Independent Sit to Stand Bed Transfer Ability Independent Rehab PT IP prob,goals,plan Problems Date of Evaluation: 02/24/25 Discharge Plan PT Discharge Plan Patient is currently most appropriate to return home once medically stable for d/c. Patient was able to walk 100 feet down the ram with a cane and demonstrated adequate gait mechanics and balance during ambulation. Skilled acute therapy is not currently indicated as patient is currently able to ambulate independently. PT recommends home health vs outpatient therapy to improve baseline residual weakness from previous stroke. Eval Complexity Eval Charge Codes 66713 - High Complexity PHYSICIAN CERTIFICATION: I certify the specified therapy services for Mercedes Cronin are required, authorized, and reviewed every 30 days.
--- NOTE | 2025-02-24 14:48 | SW/DCPLANNER ---
Addendum entered by Fatou Davidson 02/24/25 15:47: Spoke with [facility] and they said they do not accept the patients insurance. Renetta Hancock Original Note: Spoke with patient and her friend regarding home health services. Patient stated and friend did also that they were interested in home health. Patient and friend stated that they had no interest and i sent patient's info to [facility]. I also told patient and her friend that she might not be able to get home health services due to her insurance and if she would be interested in out patient therapy. Patient stated that she could maybe do that. Will update once i hear from [facility]. Renetta Hancock
--- NOTE | 2025-02-24 15:42 | HMH.OTEV ---
OT Inpatient Evaluation Rehab OT IP Evaluation Start: 02/24/25 09:38 Freq: ONCE Status: Complete Protocol: Document 02/24/25 15:00 BENJAMÍN (Rec: 02/24/25 15:41 [facility] [id number]) Rehab OT IP Assessment Subjective History A 59-year-old female with a history of congestive heart failure, hypertension, hyperlipidemia, diabetes, peripheral artery disease ( status post right lower extremity revascularization), and prior cerebrovascular accident presents to the emergency department with 3 weeks of nausea, vomiting, diarrhea, urinary tract infection symptoms, vaginal itching, general weakness, intermittent chest pain, and shortness of breath. Patient has a hx of a stroke which caused right sided weakness and aphasia. Patient currently lives with her ex- and uses a cane during functional transfers. Pt reports being able to dress and shower herself independently. However, she is dependent upon family for completion of IADLs. Subjective Patient presents resting supine in bed, and is alert and oriented. Pt's ex- is present in the room. She is willing to complete evlauation with OT this pm. Objective Patient Orientation Person,Place,Birthday Right Upper Extremity Gross ROM WFL Left Upper Extremity Gross ROM WFL Bed Mobility bed mobility-scooting,bed mobility - supine/sit Assist Level Supervision/Stand by Transfer Training Sit/Stand Transfer Assist Level Contact Guard/Hand Hold Chair Transfer Ability Contact Guard/Hand Hold Chair Transfer Technique Sit to/from Ambulatory Chair Transfer Assistive Devices Straight Cane Lower Body Dressing Ability Standby Assistance Rehab OT IP prob,goals,plan Problems Date of Evaluation: 02/24/25 Rehab Potential Rehab Potential Innapropriate for Skilled Therapy Discharge Plan OT Discharge Plan Patient is currently most appropriate to return home once medically stable for d/c. Patient appears to be at her baseline with functional transfers and ADL independence . OT recommends home health vs outpatient therapy to improve baseline residual weakness from previous stroke. Eval Complexity Eval Charge Codes 96058 - Moderate Complexity PHYSICIAN CERTIFICATION: I certify the specified therapy services for Mercedes Cronin are required, authorized, and reviewed every 30 days.
[2025-02-24 16:00] VITALS: BP 102/59; PULSE 54; PULSE 60; RESP 15; TEMP 36.6; O2SAT 93
--- NOTE | 2025-02-24 16:25 | PC.NURSE ---
No acute changes. Has had a visitor @ bedside majority of shift. Currently resting in bed, no needs voiced. Ambulated w/ her personal cane and standby assist in hallway w/ no safety concerns. No BM this shift, unable to collect a diarrhea panel. Call noreen w/in reach. POC ongoing.
[2025-02-24 16:29] LABS: POC Glucose,Bedside 87 (70-110)
--- NOTE | 2025-02-24 18:14 | EXP.ACUTE.PN ---
Subjective *Date: 02/24/25 *Time: 18:22 Interval history: Patient pleasant on exam. In no acute distress. Stable on room air. Denies any chest pain. Difficulty with appropriate word finding. Has residual deficits from previous CVA. Attempts to answer questions but is a very poor historian. He is here to answer yes and no questions. Answers do seem appropriate to simple questioning. Benign exam Medical Exam Vital signs and Labs for Last 24 Hours: Vital Signs Temp Pulse Pulse Resp BP BP Pulse Ox 02/24/25 17:00 02/24/25 16:00 97.8 F 54 L 15 102/59 L 93 L 02/24/25 16:00 60 02/24/25 15:00 02/24/25 13:00 02/24/25 12:00 60 02/24/25 11:00 02/24/25 09:00 02/24/25 08:00 60 02/24/25 08:00 02/24/25 08:00 98.4 F 61 17 99/47 L 95 02/24/25 06:31 02/24/25 05:00 02/24/25 04:00 97.8 F 66 15 101/60 L 98 02/24/25 04:00 60 02/24/25 03:00 02/24/25 01:00 02/24/25 00:00 60 02/24/25 00:00 98.4 F 65 18 102/51 L 98 02/23/25 23:00 02/23/25 21:00 02/23/25 20:38 98.8 F 60 14 96/62 L 02/23/25 20:37 70 02/23/25 20:16 98.6 F 74 16 100/57 L 100 02/23/25 20:02 02/23/25 18:30 60 97/53 L 100 O2 Del Method 02/24/25 17:00 Room Air 02/24/25 16:00 Room Air 02/24/25 16:00 02/24/25 15:00 Room Air 02/24/25 13:00 Room Air 02/24/25 12:00 02/24/25 11:00 Room Air 02/24/25 09:00 Room Air 02/24/25 08:00 02/24/25 08:00 Room Air 02/24/25 08:00 Room Air 02/24/25 06:31 Room Air 02/24/25 05:00 Room Air 02/24/25 04:00 Room Air 02/24/25 04:00 02/24/25 03:00 Room Air 02/24/25 01:00 Room Air 02/24/25 00:00 02/24/25 00:00 Room Air 02/23/25 23:00 Room Air 02/23/25 21:00 Room Air 02/23/25 20:38 Room Air 02/23/25 20:37 02/23/25 20:16 Room Air 02/23/25 20:02 Room Air 02/23/25 18:30 Room Air Intake and Output 02/24/25 02/24/25 02/24/25 07:59 15:59 23:59 Intake Total 360 / 1974 660 / 1974 954 / 1974 Output Total 850 / 1250 400 / 1250 Balance -490 / 724 660 / 724 554 / 724 Intake: Intake, Oral Amount 360 / 1020 660 / 1020 Intake, Total IV Amount 954 / 954 0.9 % Sodium Chloride 1000ML 1, 954 / 954 000 ml @ 50 mls/hr IV .Q20H ONE Rx#:[id number] Output: Output, Urine Amount 850 / 1250 400 / 1250 Other: Number of Unmeasured Voids 0 Weight 59.534 kg 59.53 kg Patient Weight 02/24/25 23:59 Weight 59.53 kg Laboratory Results - last 24 hr 02/23/25 17:58: WBC 11.9 H, RBC 3.67 L, Hgb 11.7 L, Hct 36.1 L, MCV 98.4, MCH 31.9 H, MCHC 32.4, RDW 13.0, Plt Count 311, MPV 11.2 H, Neut % (Auto) 55.9, Lymph % (Auto) 35.4, [place] % (Auto) 7.6, Eos % (Auto) 0.5, Baso % (Auto) 0.3, Neut # (Auto) 6.7, Lymph # (Auto) 4.2, [place] # (Auto) 0.9, Eos # (Auto) 0.1, Baso # (Auto) 0.0, PT 11.7, INR 1.05, APTT 24.9, Sodium 140, Potassium 4.6, Chloride 110 H, Carbon Dioxide 17 L, Anion Gap 17.6 H, BUN 32 H, Creatinine 1.70 H, Estimated Creat Clear 33, Estimated GFR 31 L, Est GFR ( Amer) 37 L, Glucose 107 H, Calcium 9.1, Phosphorus 3.5, Magnesium 2.1, Total Bilirubin 0.7, AST 47 H, ALT 24, Alkaline Phosphatase 142 H, Troponin I 0.43 H, NT-Pro-B Natriuret Pep 19325 H, Total Protein 6.9, Albumin 3.9, Globulin 3.0, Albumin/Globulin Ratio 1.3, Lipase 87, TSH 4.76 H, Thyroxine (T4) 10.0, HCV Ab URBANO w/Rflx PCR Qn Negative, HIV Ag/Ab Combo Qual Negative 02/23/25 18:57: Urine Color Yellow, Urine Appearance Clear, Urine pH 5.5, Ur Specific [place] >= 1.030, Urine Protein 1+ A, Urine Glucose (UA) 2+, Urine Ketones Negative, Urine Blood Negative, Urine Nitrate Negative, Urine Bilirubin 1+ A, Urine Urobilinogen 0.2, Ur Leukocyte Esterase 1+ A, Urine RBC None, Urine WBC 50-100, Ur Squamous Epith Cells Occasional, Urine Bacteria 2+, Hyaline Casts Occasional, Urine Yeast 2+ 02/23/25 21:18: POC Glucose 95 02/23/25 21:19: Troponin I 0.39 H 02/24/25 00:35: Troponin I 0.39 H 02/24/25 05:42: WBC 8.8 D, RBC 3.47 L, Hgb 10.8 L, Hct 34.1 L, MCV 98.3, MCH 31.1, MCHC 31.7 L, RDW 13.1, Plt Count 254, MPV 11.2 H, Neut % (Auto) 47.0, Lymph % (Auto) 45.1, [place] % (Auto) 6.5, Eos % (Auto) 0.9, Baso % (Auto) 0.3, Neut # (Auto) 4.1, Lymph # (Auto) 4.0, [place] # (Auto) 0.6, Eos # (Auto) 0.1, Baso # (Auto) 0.0, Sodium 141, Potassium 4.3, Chloride 111 H, Carbon Dioxide 19 L, Anion Gap 15.3 H, BUN 32 H, Creatinine 1.70 H, Estimated Creat Clear 34, Estimated GFR 31 L, Est GFR ( Amer) 37 L, Glucose 86, Hemoglobin A1c 5.2, Calcium 8.4, Phosphorus 3.5, Magnesium 1.9 02/24/25 06:24: POC Glucose 85 02/24/25 16:21: POC Glucose 87 I & O for Labs for Last 24 Hours: Intake & Output 02/21/25 02/22/25 02/23/25 02/24/25 23:59 23:59 23:59 23:59 Intake Total 1973 Output Total 1250 / 1250 Balance 724 / 724 Weight 59.534 kg 59.53 kg Constitutional: Present no acute distress, average body habitus, chronically ill appearing and cooperative Head: Present atraumatic and normocephalic Respiratory: Present normal respiratory effort; Absent rhonchi, wheezes or crackles Cardiac: Present Reg Rate and Rhythm GI: Present soft and normal bowel sounds; Absent distention or tenderness Extremities: Present normal inspection and full ROM Skin: Present intact; Absent erythema Neuro: Present Cranial Nerve 2-12 Intact, Grossly Intact, alert, awake and moves all extremities Comment:: Poor historian, inappropriate words and answers. Difficulty with word finding. Assessment and Plan *Assessment and plan (1) Nausea, vomiting and diarrhea: Status: Acute Category: Medical Code(s): R11.2 - Nausea with vomiting, unspecified; R19.7 - Diarrhea, unspecified (2) UTI (urinary tract infection): Status: Acute Category: Medical Code(s): N39.0 - Urinary tract infection, site not specified (3) CHF (congestive heart failure): Status: Acute Category: Medical Code(s): I50.9 - Heart failure, unspecified (4) Generalized weakness: Status: Acute Category: Medical Code(s): R53.1 - Weakness (5) HFrEF (heart failure with reduced ejection fraction): Status: Acute Category: Medical Code(s): I50.20 - Unspecified systolic (congestive) heart failure (6) CAD (coronary artery disease): Status: Acute Category: Medical Code(s): I25.10 - Atherosclerotic heart disease of [place] coronary artery without angina pectoris (7) Sepsis: Status: Acute Category: Medical Code(s): A41.9 - Sepsis, unspecified organism (8) Peripheral artery disease: Status: Acute Category: Medical Code(s): I73.9 - Peripheral vascular disease, unspecified Plan 59-year-old female with history of stroke with residual deficits. Presented with worsening weakness over the past 3 weeks including nausea, vomiting, diarrhea and concern for UTI with vaginal itching. Family recently help take over her care and are worried about her regimen unclear what she is supposed to be taking. Has not established with a primary care since arriving to [place] in December. Found to have UTI elevated on and concern for CHF and sepsis. Case discussed with ER physician, request admission for treatment of her heart failure, MARIA ESTHER versus CKD, sepsis and UTI. Medicine agreed to admit for further care. Showing some improvement this morning. On room air. Continuing antibiotics. Cardiology evaluating. Problems addressed as follows Sepsis UTI/yeast infection Suspected MARIA ESTHER CKD 3 - Urine grossly abnormal with 2+ bacteria, 2+ yeast, 1+ leuk esterase and negative nitrate. Concern for UTI. 50-100 white cells per high-powered field. Suspect non-urease splitter such as Proteus. Urine culture/blood culture still pending. - Continuing broad-spectrum antimicrobials including fluconazole 200 mg daily and ceftriaxone 1 g daily. - White count 8.8. Hemoglobin 10.8. Repeat CBC, CMP, magnesium ordered for the morning. - BUN 32, creatinine 1.7. Unsure if this is an MARIA ESTHER versus her CKD. Consistent with her labs at presentation - Discontinue home SGLT2/Jardiance CAD with NSTEMI HFrEF PAD - pt is vasculopath with 3 prior stents - Troponins plateaued at essentially 0.4. Monitoring on telemetry. -Denies any pain. Will continue Plavix 75 mg daily, Lipitor 40 mg nightly, aspirin 81 mg daily - Echo pending to evaluate ejection fraction and wall motion abnormalities -Holding metoprolol due to bradycardia. Will continue sotalol out of concern for history of arrhythmia. 80 mg daily - Appears to have possible Medtronic ICD. Cardiology to evaluate device. BNP severely elevated 25,000. Chest x-ray appears clear. -Continue Entresto twice daily. Discontinue Jardiance in the setting of UTI and sepsis. - Continue home Lasix 40 mg PO daily to maintain euvolemic state Depression: Continue Paxil 20 mg daily Mild Anemia: Hemoglobin 11.7, likely chronic or related to diabetes/congestive heart failure, no transfusion indication. Recheck CBC in 24 hours to monitor anemia; monitor closely if hemoglobin falls below 10.0 or symptoms worsen. Monitor for bleeding signs every 4 hours. Hyperglycemia : Glucose 107, A1c 5.2. No indication for sliding scale insulin. Does not have diabetes Full code Lovenox 40 mg subcu daily Cardiac diet
[2025-02-24 20:00] VITALS: BP 96/54; PULSE 60; RESP 17; TEMP 36.6; O2SAT 97
[2025-02-24] MEDS: CEFTRIAXONE 1 GM 1 GM in 0.9 % SODIUM CHLORIDE 50 ML IV (20:12)
[2025-02-24] MEDS: PARoxetine 20MG TABLET 20 MG PO (20:12)
[2025-02-24] MEDS: PANTOPRAZOLE 40MG TABLET 40 MG PO (20:12)
[2025-02-24] MEDS: ATORVASTATIN 40MG TABLET 40 MG PO (20:14)
[2025-02-25] VITALS: PULSE 70
[2025-02-25 04:00] VITALS: PULSE 60; BMI 30.3
[2025-02-25 08:00] VITALS: BP 98/51; PULSE 64; PULSE 80; RESP 16; TEMP 36.5; O2SAT 99
[2025-02-25] MEDS: SACUBITRIL/VALSARTAN 24-26MG TABLET 1 EACH PO (08:38)
[2025-02-25] MEDS: ASPIRIN EC 81MG TABLET 81 MG PO (08:38)
[2025-02-25] MEDS: FLUCONAZOLE 200MG TABLET 200 MG PO (08:38)
[2025-02-25] MEDS: FUROSEMIDE 40 MG TABLET PO (08:39)
[2025-02-25] MEDS: ENOXAPARIN 40MG/0.4ML SYRINGE 40 MG SUBCUT (08:41)
[2025-02-25] MEDS: CLOPIDOGREL 75MG TAB 75 MG PO (08:41)
[2025-02-25 08:42] LABS: Basophils # 0.1 K/mm3 (0-0.2); Basophils % 0.6 % (0.1-2.0); Eosinophils # 0.2 Kmm3 (0.0-0.4); Eosinophils % 1.7 % (0.1-12.0); Hematocrit 33.6 % (37.0-47.0); Hemoglobin 11.1 g/dL (12.2-16.2); Lymphocytes # 2.4 K/mm3 (0.7-4.5); Lymphocytes % 24.9 % (10-50); Mean Corpuscular Hemoglobin 32.3 pg (27.0-31.2); Mean Corpuscular Volume 97.7 fl (81-99); Mean Platelet Volume 10.9 fl (7.4-10.4); Monocytes # 0.6 K/mm3 (0.1-1.0); Monocytes % 6.4 % (1.7-9.3); Neutrophils # 6.3 K/mm3 (1.8-7.8); Neutrophils % 66.1 % (37.0-80.0); Nucleated Red Blood Cells # 0 10^3/uL; Nucleated Red Blood Cells % 0 %; Platelet Count 253 K/mm3 (142-424); Red Blood Count 3.44 M/mm3 (4.20-5.40); Red Cell Distribution Width 12.9 % (11.5-17.5); Red Cell Distribution Width-SD 46.3 fL; White Blood Count 9.5 K/mm3 (4.8-10.8)
[2025-02-25 08:51] LABS: Albumin Level 3.1 g/dl (3.5-5.0); Chloride 108 mmol/L (98-107)
[2025-02-25 08:52] LABS: Potassium 3.8 mmoL/L (3.5-5.1); Sodium 137 mmol/L (136-145)
[2025-02-25 08:54] LABS: Alanine Aminotransferase 16 U/L (12-78); Albumin/Globulin Ratio 1.1 (1.1-1.8); Anion Gap 11.8 mEq/L (5-15); Aspartate Amino Transferase 28 U/L (14-36); Blood Urea Nitrogen 25 mg/dl (7-17); Carbon Dioxide 21 mmol/L (22.0-30.0); Creatinine Clearance Estimated 52 mL/min (50-200); Estimated Glomerular Filt Rate 36 ml/min (>60); GFR (African American) 43 ML/MIN (>60); Globulin 2.7 g/dL (1.3-3.2); Total Protein,Serum 5.8 g/dl (6.3-8.2)
[2025-02-25 08:55] LABS: Alkaline Phosphatase 124 U/L (38-126); Bilirubin,Total 0.5 mg/dl (0.2-1.3); Glucose 85 mg/dl (74-100); Magnesium 1.8 mg/dl (1.6-2.3)
--- NOTE | 2025-02-25 09:23 | PC.NURSE ---
notified MD of blood pressure of 98/51 prior to administering entresto and lasix. Meds given per MD, patient is asymptomatic.
[2025-02-25 12:00] VITALS: BP 97/49; PULSE 67; RESP 18; TEMP 36.7; O2SAT 93
[2025-02-25 16:00] VITALS: BP 103/59; PULSE 60; PULSE 68; RESP 18; TEMP 36.9; O2SAT 99
--- NOTE | 2025-02-25 17:52 | EXP.DC.SUM ---
General Admission date:: 02/23/25 HPI HPI HPI: A 59-year-old female with a history of congestive heart failure, hypertension, hyperlipidemia, diabetes, peripheral artery disease (status post right lower extremity revascularization), and prior cerebrovascular accident presents to the emergency department with 3 weeks of nausea, vomiting, diarrhea, urinary tract infection symptoms, vaginal itching, general weakness, intermittent chest pain, and shortness of breath. She completed oral antibiotics 1 week ago for a urinary tract infection, but symptoms persisted. She reports nonbloody, nonbilious emesis, nonbloody diarrhea, and suspected yeast infection with vaginal discharge and itching. Family is concerned about medication mismanagement, noting she takes both sotalol 80 mg daily and metoprolol 12.5 mg daily, potentially contributing to weakness, chest pain, and shortness of breath. Home medications include atorvastatin 40 mg nightly, clopidogrel 75 mg daily, empagliflozin 10 mg daily, furosemide 40 mg as needed, nitroglycerin 0.4 mg as needed, paroxetine 20 mg nightly as needed, potassium chloride 20 mEq daily, sacubitril/valsartan one tablet twice daily (restarted 1 week ago), and spironolactone 25 mg daily. 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 She was hospitalized for 5 months until December 2024 post-revascularization and stroke, with moderate right lower extremity weakness requiring intermittent cane use. The history was obtained through interactive discussion with the patient and family, deemed reliable, with no prior records available due to recent relocation. They do state that they were instructed to take her furosemide as needed when they see signs of leg swelling for which they have not seen. On examination, the patient is sitting upright, in no acute distress, alert, at her neurologic baseline, with general weakness but no new focal deficits. She has soft blood pressures, appears clinically dry, and ambulates with a cane. Vital signs are reassuring on cardiac telemetry. Diagnostic workup includes labs, urinalysis, EKG, and chest X-ray. Labs show WBC 11.9, hemoglobin 11.7, platelets 311, sodium 140, potassium 4.6, creatinine 1.70, GFR 31, glucose 107, troponin 0.43 with repeat 0.39, NT-proBNP 40471, BUN 32, anion gap 17.6, AST 47, alkaline phosphatase 142, TSH 4.76, and T4 10.0. Urinalysis shows 50?100 WBCs, 2+ bacteria, 2+ yeast, 1+ protein, 2+ glucose, and 1+ leukocyte esterase. EKG shows paced rhythm at 64 bpm, no STEMI. Chest X-ray shows cardiomegaly without pulmonary edema or peripheral fluid overload signs; radiology read confirms no acute findings. Treatments implemented are not specified but implied to include IV fluids, ceftriaxone, and fluconazole based on prior management. On reassessment, the patient is calm, with stable vitals on telemetry. Hospital medicine admitted her in stable condition for monitoring of cardiovascular issues, troponin elevation, and urinary tract infection. Hospital Course Hospital Course Hospital Course: Delfino Craig is a 59-year-old female who presented with progressive weakness and was admitted for UTI, HFrEF. #Sepsis #UTI/yeast infection #Suspected MARIA ESTHER #CKD 3 ? UA grossly abnormal with also yeast, urine culture pending at this time. ? Clinically improved with ceftriaxone, fluconazole. Transitioned to cefdinir, will follow-up on urine cultures. ? Will hold Jardiance until follow-up with cardiology. ? Creatinine 1.5, GFR 36. Stable. #CAD with NSTEMI #HFrEF with BiV ICD #PAD #History of CVA - History of multiple stents, both coronary and peripheral. Former smoker. ? ECHO shows LVEF 15%, G3DD. Medical records from previous cardiology clinic in [place] pending at this time. ? Patient is on max tolerated GDMT with Entresto, Jardiance, metoprolol succinate, spironolactone. ? Spoke with Dr. Joy, advised since patient already has a BiV ICD patient can follow-up with cardiology within the next few days for further evaluation and management. ? Advised patient to restart taking Lasix 40 mg daily. Euvolemic, on room air. ? Hold Jardiance in the setting of UTI as above. ? Will follow-up with cardiology with this week. Depression: Continue Paxil 20 mg daily Total time spent on discharge: 35 minutes on chart review, counseling, documentation, and direct care with patient. Exam Data for Last 24 hours Vital signs and Labs for Last 24 Hours: Temp Pulse Resp BP Pulse Ox O2 Del Method 98.4 F 68 18 103/59 L 99 Room Air 02/25/25 16:00 02/25/25 16:00 02/25/25 16:00 02/25/25 16:00 02/25/25 16:00 02/25/25 17:00 Laboratory Results - last 24 hr 02/25/25 07:30: WBC 9.5, RBC 3.44 L, Hgb 11.1 L, Hct 33.6 L, MCV 97.7, MCH 32.3 H, MCHC 33.0, RDW 12.9, Plt Count 253, MPV 10.9 H, Neut % (Auto) 66.1, Lymph % (Auto) 24.9, [place] % (Auto) 6.4, Eos % (Auto) 1.7, Baso % (Auto) 0.6, Neut # (Auto) 6.3, Lymph # (Auto) 2.4, [place] # (Auto) 0.6, Eos # (Auto) 0.2, Baso # (Auto) 0.1, Sodium 137, Potassium 3.8, Chloride 108 H, Carbon Dioxide 21 L, Anion Gap 11.8, BUN 25 H, Creatinine 1.50 H, Estimated Creat Clear 52, Estimated GFR 36 L, Est GFR ( Amer) 43 L, Glucose 85, Calcium 8.0 L, Magnesium 1.8, Total Bilirubin 0.5, AST 28 D, ALT 16 D, Alkaline Phosphatase 124, Total Protein 5.8 L, Albumin 3.1 L, Globulin 2.7, Albumin/Globulin Ratio 1.1 Temp Pulse Resp BP Pulse Ox O2 Del Method 98.4 F 61 17 99/47 L 95 Room Air 02/24/25 08:00 02/24/25 08:00 02/24/25 08:00 02/24/25 08:00 02/24/25 08:00 02/24/25 11:00 Laboratory Results - last 24 hr 02/23/25 17:58: WBC 11.9 H, RBC 3.67 L, Hgb 11.7 L, Hct 36.1 L, MCV 98.4, MCH 31.9 H, MCHC 32.4, RDW 13.0, Plt Count 311, MPV 11.2 H, Neut % (Auto) 55.9, Lymph % (Auto) 35.4, [place] % (Auto) 7.6, Eos % (Auto) 0.5, Baso % (Auto) 0.3, Neut # (Auto) 6.7, Lymph # (Auto) 4.2, [place] # (Auto) 0.9, Eos # (Auto) 0.1, Baso # (Auto) 0.0, PT 11.7, INR 1.05, APTT 24.9, Sodium 140, Potassium 4.6, Chloride 110 H, Carbon Dioxide 17 L, Anion Gap 17.6 H, BUN 32 H, Creatinine 1.70 H, Estimated Creat Clear 33, Estimated GFR 31 L, Est GFR ( Amer) 37 L, Glucose 107 H, Calcium 9.1, Phosphorus 3.5, Magnesium 2.1, Total Bilirubin 0.7, AST 47 H, ALT 24, Alkaline Phosphatase 142 H, Troponin I 0.43 H, NT-Pro-B Natriuret Pep 37145 H, Total Protein 6.9, Albumin 3.9, Globulin 3.0, Albumin/Globulin Ratio 1.3, Lipase 87, TSH 4.76 H, Thyroxine (T4) 10.0, HCV Ab URBANO w/Rflx PCR Qn Negative, HIV Ag/Ab Combo Qual Negative 02/23/25 18:57: Urine Color Yellow, Urine Appearance Clear, Urine pH 5.5, Ur Specific [place] >= 1.030, Urine Protein 1+ A, Urine Glucose (UA) 2+, Urine Ketones Negative, Urine Blood Negative, Urine Nitrate Negative, Urine Bilirubin 1+ A, Urine Urobilinogen 0.2, Ur Leukocyte Esterase 1+ A, Urine RBC None, Urine WBC 50-100, Ur Squamous Epith Cells Occasional, Urine Bacteria 2+, Hyaline Casts Occasional, Urine Yeast 2+ 02/23/25 21:18: POC Glucose 95 02/23/25 21:19: Troponin I 0.39 H 02/24/25 00:35: Troponin I 0.39 H 02/24/25 05:42: WBC 8.8 D, RBC 3.47 L, Hgb 10.8 L, Hct 34.1 L, MCV 98.3, MCH 31.1, MCHC 31.7 L, RDW 13.1, Plt Count 254, MPV 11.2 H, Neut % (Auto) 47.0, Lymph % (Auto) 45.1, [place] % (Auto) 6.5, Eos % (Auto) 0.9, Baso % (Auto) 0.3, Neut # (Auto) 4.1, Lymph # (Auto) 4.0, [place] # (Auto) 0.6, Eos # (Auto) 0.1, Baso # (Auto) 0.0, Sodium 141, Potassium 4.3, Chloride 111 H, Carbon Dioxide 19 L, Anion Gap 15.3 H, BUN 32 H, Creatinine 1.70 H, Estimated Creat Clear 34, Estimated GFR 31 L, Est GFR ( Amer) 37 L, Glucose 86, Hemoglobin A1c 5.2, Calcium 8.4, Phosphorus 3.5, Magnesium 1.9 02/24/25 06:24: POC Glucose 85 I & O for Last 24 hours: Intake & Output 02/22/25 02/23/25 02/24/25 02/25/25 23:59 23:59 23:59 23:59 Intake Total 2214 / 2214 480 / 480 Output Total 1250 / 1250 850 / 850 Balance 964 / 964 -370 / -370 Weight 59.534 kg 59.53 kg 80.603 kg Intake & Output 02/21/25 02/22/25 02/23/25 02/24/25 23:59 23:59 23:59 23:59 Intake Total 620 / 620 Output Total 850 / 850 Balance -230 / -230 Weight 131 lb 4 oz 131 lb 4 oz Microbiology Reports for the Last 24 Hours: Microbiology 02/23/25 18:57 Urine,Catheterized Urine Culture - Final 02/23/25 23:34 Blood Blood Culture - Preliminary NO GROWTH AFTER 24 HOURS 02/23/25 23:34 Blood Blood Culture - Preliminary NO GROWTH AFTER 24 HOURS Constitutional Constitutional: no acute distress and cooperative *Routine HEENT Exam Eye: Present PERRL *Routine Respiratory Exam Respiratory: Present CTA bilaterally; Absent accessory muscle use, wheezes or crackles *Routine Cardiovascular Exam Cardiovascular: Present RRR, Normal S1 and Normal S2; Absent murmur, gallop or rubs *Routine Abdominal Exam Abdominal: Present soft; Absent tenderness *Routine Extremities Exam Extremities: Present pulses intact; Absent cyanosis or edema *Routine Skin Exam Skin: Present intact; Absent erythema or wounds *Routine Neurological Exam Neurological: Present alert and oriented X3 Routine Psychiatric Exam Psychiatric: Present cooperative Results Data Completed and Pending Labs on day of discharge: Labs from last 24 hours 02/25/25 07:30 WBC 9.5 RBC 3.44 L Hgb 11.1 L Hct 33.6 L MCV 97.7 MCH 32.3 H MCHC 33.0 RDW 12.9 Plt Count 253 MPV 10.9 H Neut % (Auto) 66.1 Lymph % (Auto) 24.9 [place] % (Auto) 6.4 Eos % (Auto) 1.7 Baso % (Auto) 0.6 Neut # (Auto) 6.3 Lymph # (Auto) 2.4 [place] # (Auto) 0.6 Eos # (Auto) 0.2 Baso # (Auto) 0.1 Sodium 137 Potassium 3.8 Chloride 108 H Carbon Dioxide 21 L Anion Gap 11.8 BUN 25 H Creatinine 1.50 H Estimated Creat Clear 52 Estimated GFR 36 L Est GFR ( Amer) 43 L Glucose 85 Calcium 8.0 L Magnesium 1.8 Total Bilirubin 0.5 AST 28 D ALT 16 D Alkaline Phosphatase 124 Total Protein 5.8 L Albumin 3.1 L Globulin 2.7 Albumin/Globulin Ratio 1.1 Preliminary micro results at discharge 02/23/25 23:34 Blood Culture - Preliminary Blood NO GROWTH AFTER 24 HOURS 02/23/25 23:34 Blood Culture - Preliminary Blood NO GROWTH AFTER 24 HOURS DS: Diagnosis Discharge Diagnosis (1) Nausea, vomiting and diarrhea: Status: Acute Code(s): R11.2 - Nausea with vomiting, unspecified; R19.7 - Diarrhea, unspecified (2) UTI (urinary tract infection): Status: Acute Code(s): N39.0 - Urinary tract infection, site not specified (3) CHF (congestive heart failure): Status: Acute Code(s): I50.9 - Heart failure, unspecified (4) Generalized weakness: Status: Acute Code(s): R53.1 - Weakness (5) HFrEF (heart failure with reduced ejection fraction): Status: Acute Code(s): I50.20 - Unspecified systolic (congestive) heart failure (6) CAD (coronary artery disease): Status: Acute Code(s): I25.10 - Atherosclerotic heart disease of [place] coronary artery without angina pectoris (7) Sepsis: Status: Acute Code(s): A41.9 - Sepsis, unspecified organism (8) Peripheral artery disease: Status: Acute Code(s): I73.9 - Peripheral vascular disease, unspecified Meds Home Medications and Allergies Home Medications ?Medication ?Instructions ?Recorded ?Confirmed ?Type atorvastatin 40 mg tablet 40 mg PO HS 02/23/25 03/02/25 History clopidogrel 75 mg tablet 75 mg PO DAILY 02/23/25 03/02/25 History empagliflozin 10 mg tablet 10 mg PO DAILY 02/23/25 03/02/25 History (Jardiance) furosemide 40 mg tablet 40 mg PO DAILY 02/23/25 03/02/25 History metoprolol succinate 25 mg 12.5 mg PO DAILY 02/23/25 03/02/25 History tablet,extended release 24 hr nitroglycerin 0.4 mg sublingual 0.4 mg sublingual DIRECTED PRN 02/23/25 03/02/25 History tablet Chest Pain paroxetine HCl 20 mg tablet 20 mg PO HS PRN Sleep 02/23/25 03/02/25 History potassium chloride 20 mEq 20 meq PO DAILY 02/23/25 03/02/25 History tablet,extended release sacubitril 24 mg-valsartan 26 mg 1 tab PO BID 02/23/25 03/02/25 History tablet (Entresto) sotalol 80 mg tablet 80 mg PO DAILY 02/23/25 03/02/25 History spironolactone 25 mg tablet 25 mg PO DAILY 02/23/25 03/02/25 History aspirin 81 mg tablet,delayed 81 mg PO DAILY #30 tabs 02/28/25 03/02/25 Rx release (Adult Low Dose Aspirin) cholecalciferol (vitamin D3) 25 25 mcg PO DAILY 03/02/25 03/02/25 History mcg (1,000 unit) capsule ciprofloxacin HCl 250 mg tablet 250 mg PO BID 5 days #10 tabs 03/02/25 03/02/25 Rx (Cipro) New Prescriptions to Start Prescriptions: Allergies Allergy/AdvReac Type Severity Reaction Status Date / Time acetaminophen (From Vicodin) Allergy Intermediate Unknown Verified 03/02/25 15:50 allergy reaction hydrocodone (From Vicodin) Allergy Intermediate Unknown Verified 03/02/25 15:50 allergy reaction nitrofurantoin (From Allergy Intermediate Unknown Verified 03/02/25 15:50 Macrobid) allergy reaction pseudoephedrine (From Allergy Intermediate Unknown Verified 03/02/25 15:50 Sudafed) allergy reaction Discharge Plan Disposition Patient Disposition: Home, Self-Care Condition: Fair Discharge Order Discharge Orders: Discharge Order (Routine); Ordered 02/25/25 Ordered By: Prieto Lim Follow up Plan Follow up with: Glen Ramirez PA [Physician Flight Manager] - 02/28/25 1:00 pm Dacia Lazcano APRN [Nurse Practitioner] - 03/02/25 3:45 pm (please arrive 15 minutes early) Prescriptions/Medication Reconciliation: Continued furosemide 40 mg tablet 40 mg PO DAILY Patient Comments: TAKE 1 TABLET BY MOUTH EVERY DAY atorvastatin 40 mg tablet 40 mg PO HS Patient Comments: TAKE 1 TABLET BY MOUTH EVERY DAY sotalol 80 mg tablet 80 mg PO DAILY Patient Comments: TAKE 1 TABLET BY MOUTH EVERY DAY clopidogrel 75 mg tablet 75 mg PO DAILY Patient Comments: TAKE 1 TABLET BY MOUTH EVERY DAY spironolactone 25 mg tablet 25 mg PO DAILY Patient Comments: TAKE 1 TABLET BY MOUTH EVERY DAY paroxetine HCl 20 mg tablet 20 mg PO HS PRN (Reason: Sleep) Patient Comments: TAKE 1 TABLET BY MOUTH EVERYDAY AT BEDTIME nitroglycerin 0.4 mg tablet, sublingual 0.4 mg sublingual DIRECTED PRN (Reason: Chest Pain) Patient Comments: PLEASE SEE ATTACHED FOR DETAILED DIRECTIONS metoprolol succinate 25 mg tablet extended release 24 hr 12.5 mg PO DAILY Patient Comments: TAKE 0.5 TABLETS BY MOUTH EVERY DAY FOR 90 DAYS. potassium chloride 20 mEq tablet extended release 20 meq PO DAILY Patient Comments: TAKE 1 TABLET BY MOUTH EVERY DAY Entresto 24-26 mg tablet 1 tab PO BID Patient Comments: TAKE 1 TABLET BY MOUTH TWICE A DAY Held Jardiance 10 mg tablet 10 mg PO DAILY Hold Instructions: Resume on 03/11/25. Patient Comments: TAKE 1 TABLET BY MOUTH EVERY DAY No Action cholecalciferol (vitamin D3) 25 mcg (1,000 unit) capsule 25 mcg PO DAILY ciprofloxacin HCl [Cipro] 250 mg tablet 250 mg PO BID 5 Days Qty: 10 0RF aspirin [Adult Low Dose Aspirin] 81 mg tablet,delayed release (DR/EC) 81 mg PO DAILY Qty: 30 5RF Problem Reconciliation Problems Reviewed?: Yes Patient Discharge Instructions Patient Instructions: DI for Heart Attack, DI for Heart Failure, DI for Urinary Tract Infection (UTI), DI for Nausea -- Adult, DI for Vomiting -- Adult, DI for Sepsis -- Adult, Stop Light Heart Failure Print Language: Indonesian Providers Primary Care Provider: Provider,Referral Admit Provider: Tim Macdonald Attending Provider: Tim Macdonald
[2025-02-25] MEDS: CEFDINIR 300MG CAPSULE 300 MG PO (18:33)
--- NOTE | 2025-02-27 15:22 | SW/DCPLANNER ---
Spoke with patients daughter. Patients daughter stated that she is doing well. Patients daughter stated that she is aware of her moms appointments. Patients daughter stated that she was able to get her medicine picked up. Patients daughter stated that she has no concerns or questions at this time. Renetta Hancock
== END 2025-02-25 18:52 | disposition home or self-care (01) ==
LOC: ER 18:14 → 2ND 20:22
PROVIDERS: Nurse Practitioner Family; Admitting Provider Internal Medicine Adolescent Medicine; Emergency Provider Emergency Medicine; Visit Provider Internal Medicine Adolescent Medicine
DX: I50.20 Unspecified systolic (congestive) heart failure (principal); N18.30 Chronic kidney disease, stage 3 unspecified; N17.9 Acute kidney failure, unspecified; Z95.810 Presence of automatic (implantable) cardiac defibrillator; Z95.5 Presence of coronary angioplasty implant and graft; Z87.891 Personal history of nicotine dependence; N39.0 Urinary tract infection, site not specified; I25.2 Old myocardial infarction; Z88.8 Allergy status to other drugs, medicaments and biological substances; Z95.820 Peripheral vascular angioplasty status with implants and grafts; D64.9 Anemia, unspecified; I69.351 Hemiplegia and hemiparesis following cerebral infarction affecting right dominant side; Z79.899 Other long term (current) drug therapy
CPT/HCPCS: 36415; 71045; 80048; 80053; 81001; 82962; 83036; 83690; 83735; 83880; 84100; 84436; 84443; 84484; 85025; 85610; 85730; 86803; 87040; 87086; 87389; 93005; 93306; 97163; 97166; 99285; G0378; J0696; J1650; J1938; J2405; J7030; J7120; Q9957

== ENCOUNTER 2025-03-02 16:30 | Outpatient (CLI) | payer SELFPAY ==
[2025-03-02 16:40] LABS: Microscopic, Urine URINE MICROSCOPIC (MICROSCOPIC)
[2025-03-02 17:46] LABS: Appearance,Urine CLEAR (Clear); Bilirubin,Urine Negative (Negative); Blood, Urine Negative (Negative); Color,Urine YELLOW (Yellow); Glucose,Urine (UA) TRACE (Negative); Ketones,Urine Negative (Negative); Leukocyte Esterase,Urine 2+ (Negative); Nitrate,Urine Negative (Negative); PH,Urine 5.5 (5.0-8.5); Protein,Urine Negative (Negative); Urobilinogen,Urine 0.2 EU/dl (0.2)
[2025-03-02 17:48] LABS: RBC,Urine Occasional #/hpf (0-3)
[2025-03-02 17:52] LABS: Bacteria,Urine 1+ /lpf
== END 2025-03-02 23:59 | disposition home or self-care (01) ==
LOC: LAB.DROPOF 03-03 10:53
PROVIDERS: PCP Nurse Practitioner Family; Visit Provider Nurse Practitioner Family
DX: N39.0 Urinary tract infection, site not specified (principal)
CPT/HCPCS: 81001; 87086